=== PATIENT | male | born 1950 | race African-American/Black ===

== ENCOUNTER 2016-12-16 06:15 | Observation (INO) | payer OTHER ==
[~2016-12-16] VITALS: Ht 172.7 cm; Wt 110.9 kg
[~2016-12-16 06:15] MED LIST: ALLO300T2 PO; CILO50TA PO; CLOP75TA PO; LEVO25TA4 PO; LISI40TA PO; METO25TA3 PO
[2016-12-16] MEDS ORDERED: METOPROLOL TARTRATE 25 MG TAB PO PRN (06:45)
[2016-12-16] MEDS ORDERED: SODIUM CHLORID 0.9% 500 ML IV PRN (06:45)
[2016-12-16] MEDS ORDERED: CHLORHEXIDINE GLUCONATE 2 % 1 PACK (2 CLOTHS) TOPICAL PRN (06:45)
[2016-12-16] MEDS ORDERED: LACTATED RINGER'S 1000 ML IV PRN (06:45)
[2016-12-16] MEDS ORDERED: POVIDONE IODINE 5% (ANTISEPSIS KIT) 4 APPLICATIONS EACH NARE PRN (06:45)
[2016-12-16] MEDS ORDERED: INSULIN HUMAN REGULAR 1,000 UNITS/10 ML VIAL SQ PRN (06:45)
[2016-12-16] MEDS ORDERED: MICROFIBRILLAR COLLAGEN HEMOSTAT 70 X 35 MM BANDAGE ONE (08:38)
[2016-12-16] MEDS ORDERED: ceFAZolin 2 GM PREMIX 50 ML ONE (08:38)
[2016-12-16] MEDS ORDERED: GELFOAM SIZE 100 ONE (08:38)
[2016-12-16] MEDS ORDERED: GENTAMICIN SULFATE 80 MG/2 ML VIAL ONE (08:38)
[2016-12-16] MEDS ORDERED: THROMBIN (TOPICAL) 5,000 UNIT VIAL ONE (08:39)
[2016-12-16] MEDS ORDERED: PROPOFOL 500 MG/50 ML INJ 250 ML ONE (08:39)
[2016-12-16] MEDS: VANCOMYCIN HCL 1000 MG ON-CALL/NS 250 ML IV SCH ×4 (08:58→11:17)
[2016-12-16] MEDS ORDERED: LACTATED RINGER'S 1000 ML INJ 2,000 ML IV ONE (12:00)
[2016-12-16] MEDS ORDERED: ePHEDrine/NS 25 MG/5 ML SYR IV ONE (12:00)
[2016-12-16] MEDS ORDERED: ceFAZolin INJ 1,000 MG VIAL IV ONE (12:00)
[2016-12-16] MEDS ORDERED: PROPOFOL 200 MG/20 ML AMP IV ONE (12:00)
[2016-12-16] MEDS ORDERED: LABETALOL HCL 100 MG/20 ML VIAL IV ONE (12:00)
[2016-12-16] MEDS ORDERED: PHENYLEPH/NS 1000 MCG/10 ML SYR IV ONE (12:00)
[2016-12-16] MEDS ORDERED: ROCURONIUM INJ 50 MG/5 ML SYRINGE IV PUSH ONE (12:00)
[2016-12-16] MEDS ORDERED: ONDANSETRON HCL 4 MG/2 ML VIAL IV PUSH ONE (12:00)
[2016-12-16] MEDS ORDERED: DEXAMETHASONE SOD PHOS 4 MG/ML VIAL IV ONE (12:00)
[2016-12-16] MEDS ORDERED: MIDAZOLAM HCL 2 MG/2 ML VIAL IV ONE (12:00)
[2016-12-16] MEDS ORDERED: SODIUM CHLORID 0.9% 500 ML INJ 500 ML IV ONE (12:00)
[2016-12-16] MEDS ORDERED: LIDOCAINE HCL 1% PF 5 ML AMPULE OTHER ONE (12:00)
[2016-12-16] MEDS ORDERED: RESP: ALBUTEROL 2.5 MG/3 ML NEB (PRN) INH (15:15)
[2016-12-16] MEDS ORDERED: DEXTROSE 50% IN WATER 50 ML SYRINGE IV PUSH PRN (15:15)
[2016-12-16] MEDS ORDERED: SODIUM CHLORIDE 0.9% FLUSH 5 ML FLUSH IVF PRN (15:15)
[2016-12-16] MEDS ORDERED: MORPHINE SULFATE 4 MG/ML INJ IV PUSH PRN ×2 (15:15)
[2016-12-16] MEDS ORDERED: MAGNESIUM HYDROXIDE SUSP 30 ML CUP PO PRN (15:15)
[2016-12-16] MEDS ORDERED: ACETAMINOPHEN/HYDROcodone 325 MG/10 MG TAB PO PRN ×2 (15:15)
[2016-12-16] MEDS ORDERED: CYCLOBENZAPRINE HCL 10 MG TAB PO PRN (15:15)
[2016-12-16] MEDS ORDERED: MENTHOL LOZENGE BUCCAL PRN (15:15)
[2016-12-16] MEDS ORDERED: ACETAMINOPHEN 325 MG TAB PO PRN (15:15)
[2016-12-16] MEDS ORDERED: ONDANSETRON HCL 4 MG/2 ML VIAL IV PUSH PRN (15:15)
[2016-12-16] MEDS ORDERED: BISACODYL 10 MG SUPP RECTAL PRN (15:15)
[2016-12-16] MEDS ORDERED: GLUCAGON 1 MG/ML VIAL OTHER PRN (15:15)
[2016-12-16] MEDS ORDERED: DO NOT ADM ANY ANTICOAGULANT DRUGS PRN (15:24)
[2016-12-16] MEDS ORDERED: *ENALAPRILAT 1.25 MG/ML VIAL PERIprocedural Use ONLY ONE ×2 (15:46→16:09)
[2016-12-16] MEDS: DEXAMETHASONE SOD PHOS 4 MG/ML VIAL IV PUSH SCH ×2 (16:00→21:45)
[2016-12-16] MEDS ORDERED: hydrALAZINE HCL 20 MG/ML VIAL ONE (16:12)
--- NOTE | 2016-12-16 16:26 | PD.OP ---
Operative Report Date of Surgery: Dec 16, 2016 Preoperative Diagnosis: Cervical spinal stenosis with myelopathy Postoperative Diagnosis: Cervical spinal stenosis with myelopathy Procedure: C4-5, C5-6, C6-7 anterior cervical discectomy, interbody arthodhesis using PEEK cage filled with autologous bone graft, Simplicity plate and screws. Anesthesia: general Surgeon: Kirt Mcdonald It Help Desk Analyst(s): Maddy Mckinnon Operation and Findings: INDICATIONS FOR THE PROCEDURE Mr Granado is a 66 year-old male who presented with intractable neck pain and clinical evidence of upper extremity radiculopathy and cervical myelopathy. He was found to have significant spondylosis with stenosis and spinal cord compression. He has failed maximum nonsurgical management. A surgical decompression and arthrodhesis were indicated. The [id number] details of the procedure, indications, alternatives, risks and potential complications were fully discussed with the patient. He fully understood. All The questions were answered. No guarantees were given. The patient voiced requesting the procedure and provided informed consents. The patient was offered the alternative of delaying the procedure and continuing with nonsurgical management. DETAILS OF THE SURGICAL PROCEDURE After the induction of general anesthesia, endotracheal intubation was performed. A Sanchze catheter, bilateral LISSETTE hose, and sequential compression devices were placed and kept throughout the procedure. Placement of electrodes for neurophysiological monitoring of the somato sensorial evoked potentials. motor evoked potentials, and EMG as well as laryngeal nerve monitoring was achieved. The patient was positioned supine on a Ken table with the head over a gel doughnut. All pressure points were carefully padded with eggcrate mattress. The eyes were tapped shut after ointment was applied by the anesthesiologist to prevent corneal abrasion. A Ruba hugger was placed over the exposed lower body to maintain control of the core body temperature. The electrophysiological team placed the needles and electrodes in their proper location and baseline SSEP's and motor evoked potentials were registered prior and after positioning and endotracheal intubation. The anterior cervical region was prepped and draped in the usual sterile fashion. A localizing x-ray was performed with a C-arm. The surgical procedure was performed in several steps as follow: SURGICAL APPROACH A skin incision was made along the medial cervical crease with a #10 blade. The dissection was carried out through the platysma exposing the sternocleidomastoid muscle. The cervical spine was approached following the fascial layers of the neck just medial to the anterior border of the sternocleidomastoid and carotid sheath by a combination of sharp and dull dissection. The omohyoid muscle was identified and carefully dissected laterally and the deep cervical fascia was carefully opened. The longus colli muscles were retracted to each side of the midline. A marker was placed at the disc space C5-6 and a cross-table lateral x-ray performed with a C-arm. SURGICAL DECOMPRESSION In order to decompress the anterior surface of the spinal cord it was necessary to preform a microsurgical resection of the disk at C4-5, C5-6, and C6-7. At this point in the procedure the operating microscope was draped in the usual sterile fashion and brought to the field. The rest of the surgical procedure was performed using microdissection technique with the exception of the closure. Under the operative microscopic, a self-retaining retractor was placed underneath the longus colli muscle. Anterior osteophite spurs werte carefully removed with the Leksell. The annulus at C4-5, C5-6, and C6-7 were incised with a #15 blade and microdiscectomy was then carefully carried out using angled curets and pituitary forceps. There were osteophitic/disk complexes mass effect and compression of the dural sac and nerve roots. The posterior longitudinal ligament was then elevated with an angled curet and incised with a 15 bladed knife. A careful resection of the posterior longitudinal ligament was carried out using a thin footplate 2 mm Kerrison. A nerve hook was used to assess the epidural space behing the vertebral bodies C5, C6 and C7 in search for residual disk fragments. The margins of the posterior endplates at C4-5, C5-6, and C6-7 were carefully drilled and undercut with a TPS drill under high magnification. The decompression was then carried out laterally, and a bilateral foraminotomy was performed with a 2mm thin foot Kerrison. Then the vertebral bodies above and below the disk space were undercut using a 2 mm thin foot Kerrison. The epidural space was the systematically assessed with a nerve hook in search for disk fragments or scar tissue. An excellent decompression was achieved in both , the dural sac and bilateral exiting nerve roots. The incision was then irrigated with a large amount of antibiotic solution INTERBODY ARTHRODHESIS In order to avoid collapse of the disk space which would result in bilateral foraminal stenosis, and to increase the chances of a successful fusion, it was necessary to place an interbody cage filled with autologous bone. At this point of the procedure, the superior and inferior endplates were then evenly decorticated with a TPS drill. The use of a drill in combination with a curette allowed me to systematically remove the cartilaginous endplates, exposing healthy bone for the interbody arthrodesis. Fourteen millimeters distraction pins were then placed at the vertebral bodies adjacent to the disk space, and gentle distraction was applied. The size of the interbody cage was then assessed using different size spacers, and a rasp was used to ensure no residual cartilage. A PEEK cage of the appropriate size was selected, and the interbody arthrodesis was then preformed by carefully impacting a PEEK cage filled with autologous bone graft to the disc spaces C4-5, C5-6, and C6-7. An excellent position of the cage was achieved. This was was confirmed anatomically by feeling the space posterior to the implant and distance to the anterior surface of the dural sac. Radiological confirmation of the position was performed with a cross lateral xray performed with the C-arm. INTERNAL INSTRUMENTAL FIXATION Once that the interbody device was in an appropriate position, it was necessary to stabilize the spine with anterior instrumentation. Anterior instrumentation has demonstrated to increase the rate of fusion, acelerate the patient's recovery, and decrease the rate of failed interbody grafts. At this point of the procedure, the distance between the vertebral bodies was carefully measures, and a Simplicity plate was brought to the field and presented in front of the vertebral bodies C4 C5, C6 and C7. Mark Up Designer holes were then drilled using the TPS drill, and the plate was then secured to the spine using self-drilling, self-tapping screws. Initially, the inferior right screw was inserted, followed by placement of the contralateral upper screw. The remanding screws were sequentially placed in a contra-lateral fashion. A proper purchase was achieved with all screws and the position of the cage, plate and screws, and alignment of the spine was assessed anatomically by direct visualization, and radiologically by performing a cross lateral xray of the cervical spine with the C-arm. CLOSURE The incision was irrigated with several liters of antibiotic solution. Hemostasis was achieved with a bipolar. The screws were locked to prevent backing out. A 7 mm Ken-Zhang drain was left in the prevertebral space and externalized through a separate stab incision. The incision was then closed in layers. 3-0 Vicryl with interrupted sutures was used to close the platysma and subcutaneous tissue. The skin was closed with 4-0 running subcuticular Vicryl and glue was applied to the skin. The drain was secured with a 3-0 nylon. At the end of the procedure the sponge, needle and instrument counts were all correct. The estimated blood loss was less than 80-100 cc. No blood transfusion was given. No intraoperative complications occurred. The patient received prophylactic antibiotics. The patient was then extubated and transferred to the recovery room in stable condition. Kirt Mcdonald MD Dec 16, 2016 16:26
[2016-12-16] MEDS ORDERED: hydrALAZINE HCL 20 MG/ML VIAL IV ONE (16:30)
[2016-12-16] MEDS: SODIUM CHLOR 0.9% 1000 ML INJ 1,000 ML IV SCH (16:44)
--- NOTE | 2016-12-16 16:57 | RADRPT ---
EXAM DATE/TIME: 12/16/2016 10:42 [facility] COMPARISON: No previous studies available for comparison. INDICATIONS : Fusion C4 to C7 with screw and plate placement. MEDICAL HISTORY : None. SURGICAL HISTORY : None. ENCOUNTER: Initial ACUITY: 1 day PAIN SCORE: Non-responsive. LOCATION: Cervical spine. FINDINGS: 4 magnified C-arm spot views show a 4 level anterior fusion with intervening bone graft devices. Fusi on involves C4-C7. Good alignment seen. CONCLUSION: Limited images as detailed above. Mj John Jr., MD on December 16, 2016 at 16:55 Board Certified Radiologist. This report was verified electronically.
[2016-12-16] MEDS: INSULIN ASPART SUPPLEMENTAL SCALE SQ SCH ×2 (17:00→21:45)
[2016-12-16] MEDS ORDERED: ENALAPRILAT 2.5 MG/2 ML VIAL IV PUSH PRN (17:15)
[2016-12-16] MEDS ORDERED: cloNIDine HCL 0.2 MG TAB PO PRN (17:15)
[2016-12-16] MEDS: ceFAZolin 2 GM PREMIX 50 ML IV SCH (18:11)
[2016-12-16 19:17] VITALS: BP 174/79; PULSE 95; RESP 19; TEMP 96.9; O2SAT 99
[2016-12-16] MEDS ORDERED: CHLORHEXIDINE GLUCONATE 4% SOLN 120 ML BTL TOP SCH (21:00)
[2016-12-16] MEDS: SODIUM CHLORIDE 0.9% FLUSH 5 ML FLUSH IVF SCH (21:00)
[2016-12-16 23:28] VITALS: BP 151/65; PULSE 96; RESP 18; TEMP 98.6; O2SAT 95
[2016-12-17 00:06] VITALS: O2SAT 94
[2016-12-17] MEDS: ceFAZolin 2 GM PREMIX 50 ML IV SCH ×2 (00:19→08:37)
[2016-12-17] MEDS: SODIUM CHLOR 0.9% 1000 ML INJ 1,000 ML IV SCH ×2 (00:20→11:15)
[2016-12-17 04:00] VITALS: BP 159/60; PULSE 78; RESP 19; TEMP 98.9; O2SAT 100
[2016-12-17] MEDS: DEXAMETHASONE SOD PHOS 4 MG/ML VIAL IV PUSH SCH ×2 (04:35→08:37)
[2016-12-17 08:00] VITALS: BP 147/73; PULSE 65; RESP 19; TEMP 97.8; O2SAT 96
[2016-12-17] MEDS: INSULIN ASPART SUPPLEMENTAL SCALE SQ SCH ×2 (08:37→11:50)
[2016-12-17] MEDS: SODIUM CHLORIDE 0.9% FLUSH 5 ML FLUSH IVF SCH (08:41)
[2016-12-17] MEDS ORDERED: PANTOPRAZOLE SOD 40 MG DELAYED RELEASE TAB PO SCH (09:00)
[2016-12-17] MEDS ORDERED: PANTOPRAZOLE SODIUM 40 MG VIAL IVP SCH (09:00)
[2016-12-17] MEDS ORDERED: CYCL1TAB29 PO (09:28)
[2016-12-17] MEDS ORDERED: HYDR-3583 PO (09:28)
--- NOTE | 2016-12-17 10:56 | HHI.DCPOC ---
Discharge Care Plan Diagnosis: (1) Cervical myelopathy (2) Status post cervical arthrodesis Goals to Promote Your Health * To prevent worsening of your condition and complications * To maintain your health at the optimal level Directions to Meet Your Goals Take your medications as prescribed Follow your dietary instruction Follow activity as directed Keep your appointments as scheduled Take your immunizations and boosters as scheduled If your symptoms worsen call your PCP, if no PCP go to Urgent Care Center or Emergency Room Smoking is Dangerous to Your Health. Avoid second hand smoke Call the 24-hour hour crisis hotline for domestic abuse at [facility] Dec 17, 2016 10:56
--- NOTE | 2016-12-17 10:57 | HHI.FF ---
Face to Face Verification Diagnosis: (1) Cervical myelopathy (2) Status post cervical arthrodesis Physical Therapy Order: Improve ambulation, Strength and gait training Home Health Nursing Order: Medical education Signs/symptoms of disease process Medication education-adverse effect Wound care and dressing changes Nursing assessment with vital signs I have seen patient Clay GranadoJr on 12/17/16. My clinical findings support the need for the requested home health care services because: Deconditioned w/ increased weakness High risk of falls I certify that my clinical findings support that this patient is homebound because: Post-op weakness Unsteady gait/balance [facility] Dec 17, 2016 10:57
--- NOTE | 2016-12-17 10:59 | HHI.DS ---
Discharge Summary Admission Date Dec 16, 2016 at 15:18 Discharge Date: Dec 17, 2016 Admitting Diagnosis s/p ACDF (1) Cervical myelopathy ICD Code: G95.9 - Disease of spinal cord, unspecified (2) Status post cervical arthrodesis ICD Code: Z98.1 - Arthrodesis status Brief History Mr Granado is a 66 year-old male who presented with intractable neck pain and clinical evidence of upper extremity radiculopathy and cervical myelopathy. He was found to have significant spondylosis with stenosis and spinal cord compression. He has failed maximum nonsurgical management. A surgical decompression and arthrodhesis were indicated. Imaging Last Impressions Cervical Spine X-Ray 12/16/16 0000 Signed Impressions: Service Date/Time: Friday, December 16, 2016 10:42 - CONCLUSION: Limited images as detailed above. Mj John Jr., MD PE at Discharge Mr. Granado is alert, in no apparent distress. Speech is fluent. Mentation intact. His incision is clean and dry, with Dermabond in place. Cranial nerve examination: pupils equal, round and reactive to light. EOMs are intact. Facial motor are normal and symmetrical. Neck is immobilized by a Laurel J collar. Motor: moves all major muscle groups of both upper and lower extremities. Heart: NSR Respiratory: clear Hospital Course Mr. Granado underwent a C4-5, C5-6, C6-7 anterior cervical discectomy, interbody arthrodesis using PEEK cage filled with autologous bone graft, Simplicity plate and screws. Dec 16, 2016 for cervical spinal stenosis with myelopathy. He is doing well, his surgical pain controlled. He reports today feeling some improvement of his preoperative symptoms. Activity restrictions, wound care, and signs and symptoms to watch for were fully discussed with the patient. He will be discharged home in stable conditions. Pt Condition on Discharge: Stable Discharge Disposition: Disch w/ Home Health Serv Discharge Instructions DIET: Follow Instructions for: As Tolerated, No Restrictions ACTIVITIES You can perform: Weight Bearing As Srini ADDITIONAL Activity Instructio: Avoid strenuous activities, heavy lifting over 5 lbs, overhead activities, repetitive bending, twisting, pushing, pulling or any activities which might result in stress over the spine. Avoid situation that will put at risk for falls. Use assistive device as needed for walking. Wear cervical collar at all times, may remove only with meals. Follow up Referrals: Neurosurgery - 2 Weeks @ Neurosurgical - Dr Mcdonald with [facility] New Medications: Commode 3-in-1 (Commode 3-in-1) 1 Mis Mis EA .ROUTE DIRECTED, #1 0 Refills Cyclobenzaprine (Flexeril) 10 Mg Tab 10 MG PO TID for Muscle Spasm, #90 TAB 0 Refills Hydrocodone-Acetaminophen (Hydrocodone-Acetaminophen) 10-325 mg Tab 1 TAB PO Q8HR PRN for PAIN, #62 TAB 0 Refills Misc. Devices (Roller Walker) 1 Mis Mis EA .ROUTE NOW, #1 Continued Medications: Allopurinol (Allopurinol) 300 Mg Tab 300 MG PO DAILY for Gout, #30 TAB 0 Refills Cilostazol (Cilostazol) 50 Mg Tab 50 MG PO BID for INTERMITTENT CLAUDICATION, TAB 0 Refills Clopidogrel (Clopidogrel) 75 Mg Tab 75 MG PO DAILY for Blood Clot Prevention, #30 TAB 0 Refills Levothyroxine (Levothyroxine) 25 Mcg Tab 25 MCG PO DAILY for Thyroid, #30 TAB 0 Refills Lisinopril (Lisinopril) 40 Mg Tab 40 MG PO DAILY for Blood Pressure Management, #30 TAB 0 Refills Metoprolol Tartrate (Metoprolol Tartrate) 25 Mg Tab 25 MG PO DAILY, #30 TAB 0 Refills Ar[facility] Dec 17, 2016 10:58
[2016-12-17] MEDS ORDERED: COMMODE 3-IN-11 MIS (11:00)
[2016-12-17] MEDS ORDERED: ROLLER WALKER1 MI1 (11:00)
[2016-12-17 11:45] VITALS: BP 163/67; PULSE 75; RESP 19; TEMP 97.6; O2SAT 97
== END 2016-12-17 14:13 | disposition home health service (06) ==
LOC: HSDC 06:15 → HSDI 15:18 → N06A 17:35
PROVIDERS: ADMIT Neurological Surgery; ATTEND Neurological Surgery
DX: M48.02 Spinal stenosis, cervical region (principal); M50.021 Cervical disc disorder at C4-C5 level with myelopathy; M50.022 Cervical disc disorder at C5-C6 level with myelopathy; M50.223 Other cervical disc displacement at C6-C7 level; M47.26 Other spondylosis with radiculopathy, lumbar region; G95.9 Disease of spinal cord, unspecified; M54.5 Low back pain; E03.9 Hypothyroidism, unspecified; I10 Essential (primary) hypertension; I25.10 Atherosclerotic heart disease of native coronary artery without angina pectoris; K21.9 Gastro-esophageal reflux disease without esophagitis; G47.30 Sleep apnea, unspecified; Z79.899 Other long term (current) drug therapy
CPT/HCPCS: 00600; 22551; 22845; 72040; 76000; 82948; 96372; 96374; 97163; C1713; G0378; G8987; G8988; J0360; J0690; J1100; J1580; J1815; J2250; J2270; J2370; J2405; J3010; J3370; J7030; J7040; J7050; J7120; L0150; L0172